=== PATIENT | male | born 2000 | race Hispanic/Latino ===

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

== ENCOUNTER 2025-02-17 09:46 | Emergency (ER) | payer SELFPAY ==
[2025-02-17 10:44] LABS: Influenza A Ag Negative; Influenza B Ag Negative
[2025-02-17 10:46] LABS: SARS-CoV-2 Antigen Rapid Res Positive (Negative)
[2025-02-17 10:49] LABS: Absolute Lymphocytes (CBC) 0.8 K/uL (0.7-4.9); Absolute Monocytes 1.1 K/uL (0.1-1.3); Basophils % 0.4 % (0-1.3); Hematocrit 44.3 % (39.6-49.0); Hemoglobin 15.3 g/dL (13.6-17.9); Lymphocytes % 6.1 % (15.3-44.8); MCH 29.8 pg (27.0-35.0); MCHC 34.6 g/dL (32.0-36.0); MCV 86.2 fL (80-100); MPV 8.7 fL (7.6-11.3); Monocytes % 8.8 % (3.3-12.3); Neutrophils % 84.7 % (41.7-73.7); Nucleated RBC Absolute Count 0.1 (0-0); Nucleated Red Blood Cells % 0.4 % (0-0); Platelets 265 thou/uL (152-406); RBC Red Blood Cell Count 5.13 M/uL (4.33-5.43); Red Cell Distribution Width 12.9 % (12.1-15.2)
[2025-02-17 10:55] LABS: Anion Gap 11.5 mEq/L (5.0-15.0); Potassium 3.5 mEq/L (3.5-5.1)
--- NOTE | 2025-02-17 11:06 | RAD REPORT ---
EXAM: Chest Single View HISTORY: 24 years Male COUGH COMPARISON: 08/26/2018 FINDINGS: LUNGS/PLEURA: The lungs are clear. No pleural effusions or pneumothorax. No pulmonary edema. CARDIAC/MEDIASTINUM: The cardiac silhouette is within normal limits. UPPER ABDOMEN: No significant abnormality. BONES: No acute abnormality. LINES/TUBES/OTHER: N/A IMPRESSION: No evidence of acute cardiopulmonary disease.
[2025-02-17] MEDS ORDERED: ONDANSETRON 4 MG/2 ML VIAL ONE (11:34)
[2025-02-17] MEDS ORDERED: KETOROLAC 30 MG/ML INJ ONE (11:34)
[2025-02-17] MEDS ORDERED: ACETAMINOPHEN 500 MG TAB ONE (11:34)
[2025-02-17] MEDS ORDERED: NA CHLORIDE 0.9% 1,000 ML ONE (11:35)
--- NOTE | 2025-02-17 11:52 | EDPHYS ---
Physician Documentation [facility] Name: Cisco Fortune Age: 24 yrs Sex: Male : 2000 Arrival Date: 02/17/2025 Time: 09:46 Bed DX3 Private MD: ED Physician Jay Zelaya HPI: 02/17 11:50 This 24 yrs old Male presents to ER via Ambulatory with complaints of ec2 Vomiting, Chills. 11:50 Patient arrives today for cough and cold symptoms along with nausea and vomiting and ec2 chills. Patient with multiple COVID exposures. Patient reports decreased p.o. intake and generally feeling unwell.. Historical: - Allergies: 10:20 No Known Allergies; iw - Home Meds: 10:20 None [Active]; iw - PMHx: 10:20 Migraines; Asthma; iw - PSHx: 10:20 None; iw - Infectious Disease History:: Denies. ROS: 11:50 Constitutional: as per hpi ec2 Exam: 11:50 Constitutional: GEN: NAD Head: atraumatic Eyes: EOMI Ears: External ears are ec2 normal. CV: Tachycardia LUNGS: no respiratory distress ABD: non-distended SKIN: no evidence of rashes MSK: no evidence of trauma Vital Signs: 10:20 BP 130 / 74; Pulse 119; Resp 19; Temp 99; Pulse Ox 98% ; Weight 86.18 kg; Height 5 ft. iw 7 in. ; Pain 7/10; 10:20 Body Mass Index 29.76 (86.18 kg, 170.18 cm) iw 10:20 Pain Scale: Adult iw MDM: 10:21 Medical Screening Exam initiated ec2 11:51 Data reviewed: vital signs, nurses notes. ED course: Patient arrives today for URI ec2 symptoms with known COVID exposures. Patient positive for COVID, chest x-ray shows no acute intrathoracic process, lab work is unrevealing. Will discharge home, presentation consistent with COVID. Return precautions given. Will prescribe antiemetic as well.. 02/17 10:25 Order name: CBC with Diff; Complete Time: 10:53 ec2 02/17 10:25 Order name: BMP; Complete Time: 10:59 ec2 02/17 10:25 Order name: COVID-19 Ag + Flu A+B Ag; Complete Time: 10:53 ec2 02/17 10:25 Order name: CXR XRAY; Complete Time: 11:28 ec2 02/17 10:25 Order name: IV; Complete Time: 11:54 ec2 Administered Medications: 11:46 Drug: Ketorolac IVP 15 mg IVP once Route: IVP; Site: right antecubital; iw 12:15 Follow up: Response: No adverse reaction iw 11:46 Drug: Acetaminophen PO 1000 mg PO once Route: PO; iw 12:00 Follow up: Response: No adverse reaction iw 11:47 Drug: NS 0.9% IV 1000 ml IV at 1 bolus Per protocol; to be given as a bolus over 60 iw minutes Route: IV; Rate: 1 bolus; Site: right antecubital; 12:30 Follow up: IV Status: Completed infusion iw 11:47 Drug: Ondansetron IVP 4 mg IVP once; over 2 minutes Route: IVP; Site: right antecubital;iw 12:00 Follow up: Response: No adverse reaction iw Disposition Summary: 02/17/25 11:52 Discharge Ordered Notes: Location: Home ec2 Condition: Stable ec2 Diagnosis - SARS-associated coronavirus as the cause of diseases classified elsewhere ec2 Followup: ec2 - With: Private Physician - When: - Reason: Re-evaluation by your physician Discharge Instructions: - Discharge Summary Sheet ec2 - Viral Illness, Adult ec2 Forms: - Work release form ec2 - Medication Reconciliation Form ec2 - Antibiotic Education ec2 - Prescription Opioid Use ec2 - Patient Portal Instructions ec2 - Leadership Thank You Letter ec2 Prescriptions: - Zofran 4 mg Oral Tablet - take 1 tablet ORAL route every 12 hours As needed; 20 tablet; Refills: 0, ec2 Product Selection Permitted - Tessalon Perles 100 mg Oral Capsule - take 1 capsule ORAL route every 8 hours As needed; 15 capsule; Refills: 0, ec2 Product Selection Permitted Signatures: Dispatcher [employer] Delaney Yao RN RN iw Jay Zelaya MD MD ec2 Corrections: (The following items were deleted from the chart) 10:25 10:25 Chest Single View+RAD.[email or web address].[email or web address] ordered. [place] IBRAHIM
--- NOTE | 2025-02-17 11:52 | ER ---
Nurse's Notes [facility] Name: Cisco Fortune Age: 24 yrs Sex: Male : 2000 Arrival Date: 02/17/2025 Time: 09:46 Bed DX3 Private MD: Diagnosis: SARS-associated coronavirus as the cause of diseases classified elsewhere Presentation: 02/17 10:20 Chief complaint: Chief complaint: Patient states: cough, vomiting, chills, exposed to iw COVID. 10:20 Coronavirus screen: Client presents with at least one sign or symptom that may indicate iw coronavirus-19. Ebola Screen: No symptoms or risks identified at this time. Initial Sepsis Screen: Does the patient meet any 2 criteria? HR > 90 bpm. Does the patient have a suspected source of infection?. Risk Assessment: Do you want to hurt yourself or someone else? Patient reports no desire to harm self or others. Onset of symptoms was February 15, 2025. 10:20 Method Of Arrival: Ambulatory iw 10:21 Acuity: STORMY 3 iw Triage Assessment: 10:20 General: Appears uncomfortable, Behavior is cooperative. GI: Reports nausea, vomiting. iw Historical: - Allergies: 10:20 No Known Allergies; iw - Home Meds: 10:20 None [Active]; iw - PMHx: 10:20 Migraines; Asthma; iw - PSHx: 10:20 None; iw - Infectious Disease History:: Denies. Screenin:16 [facility] ED Fall Risk Assessment (Adult) History of falling in the last 3 months, iw including since admission No falls in past 3 months (0 pts) Confusion or Disorientation No (0 pts) Intoxicated or Sedated No (0 pts) Impaired Gait No (0 pts) Mobility Assist Device Used No (0 pt) Altered Elimination No (0 pt) Score/Fall Risk Level 0 - 2 = Low Risk Oriented to surroundings, Maintained a safe environment. Abuse screen: Denies threats or abuse. Denies injuries from another. Nutritional screening: No deficits noted. Tuberculosis screening: No symptoms or risk factors identified. Assessment: 10:20 General: Appears uncomfortable, Behavior is calm, cooperative. General: Reports chills iw for fever for feeling ill for fatigue for. Pain: Complains of pain in body aches. Neuro: Level of Consciousness is awake, alert, obeys commands, Oriented to person, place, time, situation. Cardiovascular: Patient's skin is warm and dry. Respiratory: Respiratory effort is even, unlabored, Respiratory pattern is regular. GI: Abdomen is flat. Derm: Skin is intact, is healthy with good turgor. Musculoskeletal: Range of motion: intact in all extremities. Vital Signs: 10:20 BP 130 / 74; Pulse 119; Resp 19; Temp 99; Pulse Ox 98% ; Weight 86.18 kg; Height 5 ft. iw 7 in. ; Pain 7/10; 10:20 Body Mass Index 29.76 (86.18 kg, 170.18 cm) iw 10:20 Pain Scale: Adult iw ED Course: 09:49 Patient arrived in ED. mr 09:49 Jay Zelaya MD is Attending Physician. ec2 10:22 Triage completed. iw 10:22 Arm band placed on. iw 10:37 CXR XRAY In Process Unspecified. EDMS 11:00 Initial lab(s) drawn, by me, sent to lab. Inserted saline lock: 22 gauge in right iw antecubital area, using aseptic technique. Blood collected. Flushed with 10 mL NS. 11:38 Delaney Dugan, RN is Primary Nurse. iw 12:16 No provider procedures requiring assistance completed. IV discontinued, intact, iw bleeding controlled, No redness/swelling at site. Pressure dressing applied. Administered Medications: 11:46 Drug: Ketorolac IVP 15 mg IVP once Route: IVP; Site: right antecubital; iw 12:15 Follow up: Response: No adverse reaction iw 11:46 Drug: Acetaminophen PO 1000 mg PO once Route: PO; iw 12:00 Follow up: Response: No adverse reaction iw 11:47 Drug: NS 0.9% IV 1000 ml IV at 1 bolus Per protocol; to be given as a bolus over 60 iw minutes Route: IV; Rate: 1 bolus; Site: right antecubital; 12:30 Follow up: IV Status: Completed infusion iw 11:47 Drug: Ondansetron IVP 4 mg IVP once; over 2 minutes Route: IVP; Site: right antecubital;iw 12:00 Follow up: Response: No adverse reaction iw Outcome: 11:52 Discharge ordered by . ec2 12:16 Discharged to home ambulatory, with family, iw 12:16 Condition: good 12:16 Discharge instructions given to patient, family, Instructed on discharge instructions, follow up and referral plans. Demonstrated understanding of instructions, follow-up care, Prescriptions given X 2, 12:17 Patient left the ED. hb Signatures: Dispatcher [employer] EDNY Estela Ortiz, Reg Reg Delaney Dugan RN RN iw Cecilia Elliott RN RN Jay Zelaya MD MD ec2 Corrections: (The following items were deleted from the chart) 10:22 10:20 BP 130 / 74; Pulse 119bpm; Resp 19bpm; Pulse Ox 98%; Temp 99F; iw iw 22:07 10:20 Chief complaint: iw iw 22: 12:16 Discharge instructions given to patient, family, Instructed on discharge iw instructions, follow up and referral plans. Demonstrated understanding of instructions, follow-up care, iw
[2025-02-17 12:26] VITALS: BP 130/74; TEMP 99; O2SAT 98
== END 2025-02-17 12:17 | disposition home or self-care (01) ==
LOC: ER 09:46
DX: U07.1 COVID-19 (principal)
CPT/HCPCS: 36415; 71045; 80048; 85025; 87428; 96361; 96374; 96375; 99284; J2405; J7030